=== PATIENT | male | born 1980 | race Caucasian/White ===

== ENCOUNTER 2020-05-16 15:52 | Emergency (ER) | payer OTHER ==
[~2020-05-16] VITALS: Ht 182.9 cm; Wt 79.1 kg
[2020-05-16 15:52] VITALS: BP 128/82
[2020-05-16] MEDS ORDERED: VITMTA PO (16:02)
--- NOTE | 2020-05-16 16:34 | REP ---
INDICATION: trauma. COMPARISON: None. TECHNIQUE: Four views FINDINGS: Four views of the left great toe demonstrate a depressed intra-articular fracture of the distal end of the 2nd toe. By history, this is subacute and known. No acute fracture is seen in the great toe. No subluxation noted. Plantar heel spur is noted. IMPRESSION: There is a somewhat impacted intra-articular fracture of the distal end of the proximal phalanx of the 2nd toe which appears to be recent. No great toe fracture or subluxation is seen. Plantar heel spurring. Otherwise negative.. <Electronically signed by Jose Millan > 05/16/20 [id number]
--- NOTE | 2020-05-17 08:01 | ED PDOC ---
Post-Departure Follow-Up lorin rivers to [facility] pt , review xray and rx keflex in case open fx , recc fu to ft Preston Gtz MD May 17, 2020 08:01
== END 2020-05-16 18:11 | disposition home or self-care (01) ==
LOC: M ED 15:52
DX: S90.212A Contusion of left great toe with damage to nail, initial encounter (principal); W20.8XXA Other cause of strike by thrown, projected or falling object, initial encounter; Y92.9 Unspecified place or not applicable; Y93.9 Activity, unspecified; Y99.9 Unspecified external cause status